=== PATIENT | male | born 1955 | race Caucasian/White ===

== ENCOUNTER 2018-11-23 03:26 | Emergency (ER) | payer BC ==
[~2018-11-23] VITALS: Ht 188 cm; Wt 106.6 kg
[~2018-11-23 03:26] MED LIST: ALLO300T2 PO; AML5T; ASPI-586 PO; CEPH-507 PO; ENLP10T; GLBR3T; HYDR-4226 PO; INSHRV; INSULIN HUMAN; MTF500T; PGLT30T; [UNRECOGNIZED DRUG - OTHER]
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
[2018-11-23] MEDS ORDERED: ANTACID SUSP 30 ML UDC (MYLANTA) PO ONE (04:00)
[2018-11-23] MEDS ORDERED: LIDOCAINE 2% VISCOUS 15 ML UDC PO ONE (04:00)
[2018-11-23] MEDS: NITROGLYCERIN 0.4 MG SL TABS BTL 25'S SL PRN ×2 (04:30→04:35)
[2018-11-23 04:37] LABS: BASOPHILS % (AUTO) 0 % (0-10); EOSINOPHILS # (AUTO) 0.1 10^3/uL (0.0-0.3); EOSINOPHILS % (AUTO) 3 % (0-10); HEMATOCRIT 41 % (40-54); HEMOGLOBIN 13.9 G/DL (13.3-17.7); LYMPHOCYTES # (AUTO) 0.7 X 10^3 (1.0-4.0); LYMPHOCYTES % (AUTO) 13 % (12-44); MEAN CORPUSCULAR HEMOGLOBIN 32 PG (25-34); MEAN CORPUSCULAR HGB CONC 34 G/DL (32-36); MEAN CORPUSCULAR VOLUME 93 FL (80-99); MEAN PLATELET VOLUME 10.9 FL (7.4-10.4); MONOCYTES # (AUTO) 0.5 X 10^3 (0.0-1.0); MONOCYTES % (AUTO) 10 % (0-12); NEUTROPHILS % (AUTO) 74 % (42-75); PLATELET COUNT 191 10^3/uL (130-400); RED CELL DISTRIBUTION WIDTH 13.6 % (10.0-14.5); WHITE BLOOD COUNT 5.4 10^3/uL (4.3-11.0)
[2018-11-23 04:58] LABS: ALANINE AMINOTRANSFERASE 32 U/L (0-55); ALBUMIN 3.9 GM/DL (3.2-4.5); ALKALINE PHOSPHATASE 62 U/L (40-136); BILIRUBIN,TOTAL 0.4 MG/DL (0.1-1.0); BUN/CREATININE RATIO 21; CALCIUM 9.4 MG/DL (8.5-10.1); CARBON DIOXIDE 23 MMOL/L (21-32); CHLORIDE 106 MMOL/L (98-107); CREATININE SERUM 0.98 MG/DL (0.60-1.30); GFR ESTIMATED > 60; GLUCOSE 148 MG/DL (70-105); MAGNESIUM 2.1 MG/DL (1.8-2.4); POTASSIUM 3.9 MMOL/L (3.6-5.0); SODIUM 140 MMOL/L (135-145); TOTAL PROTEIN 6.1 GM/DL (6.4-8.2)
[2018-11-23 05:04] LABS: MYOGLOBIN SERUM 113.7 NG/ML (10.0-92.0)
[2018-11-23 05:07] LABS: PROTHROMBIN TIME PATIENT 12.6 SEC (12.2-14.7)
--- NOTE | 2018-11-23 05:40 | ED Chest Pain ---
General Chief Complaint: Chest Pain Stated Complaint: CP Nursing Triage Note: intermittant epigastric pain x1 month, upper chest pain since 0300. Nursing Sepsis Screen: No Definite Risk Source: family, old records Exam Limitations: no limitations (OFELIA GABRIEL MD) History of Present Illness Date Seen by Provider: Nov 23, 2018 Time Seen by Provider: 03:38 Initial Comments This 62-year-old gentleman presents to the emergency room with complaints of pain in the epigastrium and left upper chest that started around 03:00. He has had some pain intermittently in the epigastric region for about a month. This seems to get better when he drinks water. However, the pain after the chest is new since this morning. He took aspirin 650 mg at 03:00. He had a stress test performed several years ago at this facility which she reports was unremarkable. Review of the chart shows an order for that test in 2010 but no report can be found. He reports pain is now about 3/10 in intensity. It feels like a pressure. He denies any history of heart disease. He is not a smoker. He has hypertension, diabetes, and history of renal stones. His primary care provider is Dr. Recinos. (OFELIA GABRIEL MD) Allergies and Home Medications Allergies Coded Allergies: No Known Drug Allergies (Verified , 12/31/07) Home Medications Allopurinol 300 Mg Tablet, 300 MG PO DAILY, (Reported) Aspirin 81 Mg Tablet.dr, 81 MG PO DAILY, (Reported) Patient Home Medication List Home Medication List Reviewed: Yes (OFELIA GABRIEL MD) Review of Systems Review of Systems Constitutional: no symptoms reported EENTM: No Symptoms Reported Respiratory: No Symptoms Reported Cardiovascular: No Symptoms Reported Gastrointestinal: See HPI Genitourinary: No Symptoms Reported Musculoskeletal: no symptoms reported Skin: no symptoms reported Psychiatric/Neurological: No Symptoms Reported Endocrine: No Symptoms Reported Hematologic/Lymphatic: No Symptoms Reported (OFELIA GABRIEL MD) Past Aduidup-Jxjjcn-Iinfsw Hx Past Med/Social Hx: Reviewed and Corrections made (OFELIA GABRIEL MD) Patient Social History Alcohol Use: Occasionally Uses Recreational Drug Use: No Smoking Status: Never a Smoker 2nd Hand Smoke Exposure: No Recent Foreign Travel: No Contact w/Someone Who Travel: No Recent Infectious Disease Expo: No Recent Hopitalizations: No (OFELIA GABRIEL MD) Immunizations Up To Date Tetanus Booster (TDap): More than 5yrs (OFELIA GABRIEL MD) Seasonal Allergies Seasonal Allergies: No (OFELIA GABRIEL MD) Past Medical History Surgeries: Yes (BACK SURG.L5 X3, lithrotripsy) Renal Respiratory: Yes Sleep Apnea Currently Using CPAP: Yes Cardiac: Yes Hypertension Neurological: No Reproductive Disorders: No Genitourinary: Yes Kidney Stones Gastrointestinal: No Musculoskeletal: Yes (SURGERIES-L5 X3) Endocrine: Yes Diabetes, Non-Insulin dep HEENT: No Cancer: No Psychosocial: No Integumentary: No Blood Disorders: No (OFELIA GABRIEL MD) Physical Exam Vital Signs Vital Signs - First Documented 11/23/18 03:30 Temp 98.6 Pulse 63 Resp 18 B/P (MAP) 154/74 (100) (GREGORY BETTS) Vital Signs Capillary Refill : Less Than 3 Seconds (OFELIA GABRIEL MD) Height, Weight, BMI Height: 6'2.00" Weight: 235lbs. 0oz. 106.821831xx; BMI Method:Stated General Appearance: No Apparent Distress, WD/WN HEENT: PERRL/EOMI, Normal ENT Inspection Neck: Normal Inspection Respiratory: Chest Non Tender, Lungs Clear, Normal Breath Sounds, No Accessory Muscle Use, No Respiratory Distress Cardiovascular: Regular Rate, Rhythm, No Edema, No Murmur, Normal Peripheral Pulses Gastrointestinal: Normal Bowel Sounds, Soft, Tenderness (mild in the epigastrium) Extremity: Normal Capillary Refill, Normal Inspection, No Calf Tenderness, No Pedal Edema, Other (negative Lisa) Neurologic/Psychiatric: Alert, Oriented x3, No Motor/Sensory Deficits, Normal Mood/Affect, special education supervisor II-XII Norm as Tested Skin: Normal Color, Warm/Dry (OFELIA GABRIEL MD) Procedures/Interventions Suture Size: 4-0 (OFELIA GABRIEL MD) Progress/Results/Core Measures Results/Orders Lab Results Laboratory Tests Test 11/23/18 04:30 11/23/18 07:00 Range/Units White Blood Count 5.4 4.3-11.0 10^3/uL Red Blood Count 4.37 4.35-5.85 10^6/uL Hemoglobin 13.9 13.3-17.7 G/DL Hematocrit 41 40-54 % Mean Corpuscular Volume 93 80-99 FL Mean Corpuscular Hemoglobin 32 25-34 PG Mean Corpuscular Hemoglobin Concent 34 32-36 G/DL Red Cell Distribution Width 13.6 10.0-14.5 % Platelet Count 191 130-400 10^3/uL Mean Platelet Volume 10.9 H 7.4-10.4 FL Neutrophils (%) (Auto) 74 42-75 % Lymphocytes (%) (Auto) 13 12-44 % Monocytes (%) (Auto) 10 0-12 % Eosinophils (%) (Auto) 3 0-10 % Basophils (%) (Auto) 0 0-10 % Neutrophils # (Auto) 4.0 1.8-7.8 X 10^3 Lymphocytes # (Auto) 0.7 L 1.0-4.0 X 10^3 Monocytes # (Auto) 0.5 0.0-1.0 X 10^3 Eosinophils # (Auto) 0.1 0.0-0.3 10^3/uL Basophils # (Auto) 0.0 0.0-0.1 10^3/uL Prothrombin Time 12.6 12.2-14.7 SEC INR Comment 1.0 0.8-1.4 Activated Partial Thromboplast Time 29 24-35 SEC Sodium Level 140 135-145 MMOL/L Potassium Level 3.9 3.6-5.0 MMOL/L Chloride Level 106 98-107 MMOL/L Carbon Dioxide Level 23 21-32 MMOL/L Anion Gap 11 5-14 MMOL/L Blood Urea Nitrogen 21 H 7-18 MG/DL Creatinine 0.98 0.60-1.30 MG/DL Estimat Glomerular Filtration Rate > 60 BUN/Creatinine Ratio 21 Glucose Level 148 H 70-105 MG/DL Calcium Level 9.4 8.5-10.1 MG/DL Corrected Calcium 9.5 8.5-10.1 MG/DL Magnesium Level 2.1 1.8-2.4 MG/DL Total Bilirubin 0.4 0.1-1.0 MG/DL Aspartate Amino Transf (AST/SGOT) 31 5-34 U/L Alanine Aminotransferase (ALT/SGPT) 32 0-55 U/L Alkaline Phosphatase 62 40-136 U/L Myoglobin 113.7 H 10.0-92.0 NG/ML Troponin I < 0.028 < 0.028 <0.028 NG/ML Total Protein 6.1 L 6.4-8.2 GM/DL Albumin 3.9 3.2-4.5 GM/DL (GREGORY BETTS) Medications Given in ED Current Medications Medications Dose Ordered Sig/Rhys Route Start Time Stop Time Status Last Admin Dose Admin Al Hydrox/Mg Hydrox/Simethicone 30 ml ONCE ONCE PO 11/23/18 04:00 11/23/18 04:01 DC 11/23/18 03:53 30 ML Lidocaine HCl 15 ml ONCE ONCE PO 11/23/18 04:00 11/23/18 04:01 DC 11/23/18 03:53 15 ML Nitroglycerin 0.4 mg UD PRN SL 11/23/18 04:30 11/23/18 04:35 0.4 MG (GREGORY BETTS) Vital Signs/I&O 11/23/18 11/23/18 11/23/18 03:30 03:30 03:30 Temp 98.6 Pulse 63 Resp 18 B/P (MAP) 154/74 (100) Pulse Ox 96 96 O2 Delivery Room Air Room Air Room Air (GREGORY BETTS) Blood Pressure Mean: 100 Progress Progress Note #1: Time: 05:37 Progress Note Patient received a GI cocktail which modestly may have improved his pain. Patient was reexamined after GI cocktail and no longer had tenderness in the epigastrium. This was followed by nitroglycerin which likewise may have modestly improved his pain. He reports his discomfort is not even really noticeable now. I discussed options with him including admission for observation versus repeat troponin at the 4 hour dwight. He would like to have his troponin repeated and follow-up as an outpatient if possible. Repeat troponin has been ordered for 07:00. Progress Note #2: Time: 06:16 Progress Note Repeat troponin is pending. Care of this patient is being transitioned to Dr. Betts at this time. (OFELIA GABRIEL MD) Initial ECG Impression Date: Nov 23, 2018 Initial ECG Impression Time: 04:35 Initial ECG Rate: 66 Initial ECG Rhythm: Normal Sinus Initial ECG Intervals: Normal Initial ECG Impression: Normal Comment Normal sinus rhythm with no ST elevation or depression. No abnormal intervals or axis deviation. (OFELIA GABRIEL MD) Diagnostic Imaging Diagonstic Imaging: Xray Plain Films/CT/US/NM/MRI: chest Comments Chest x-ray viewed by me and report not yet available. No acute abnormalities appreciated. (OFELIA GABRIEL MD) Comments [facility] [place], [place] NAME: MOY FARRAR [facility] REC#: [id number] PT STATUS: REG ER : 1955 PHYSICIAN: OFELIA GABRIEL MD ADMIT DATE: 11/23/18/ER Draft Date of Exam:11/23/18 CHEST 1 VIEW, AP/PA ONLY CLINICAL INDICATION: Patient with chest pain. EXAM: Portable chest x-ray upright view. COMPARISONS: Chest x-ray dated 12/23/2007. FINDINGS: Lungs/pleura: Lungs are clear. There is no pneumothorax. There is no pleural effusion. Mediastinum: Unremarkable. Pulmonary vasculature: Unremarkable. Heart: Unremarkable. Bones/extrathoracic soft tissue: There are moderately hypertrophic spurs seen throughout the thoracic spine. IMPRESSION: There is no radiographic evidence of acute cardiopulmonary process. Dictated on workstation # [id number] Dict: 11/23/1810 Trans: 11/23/1816 [id number] Interpreted by: BETTIE SANTANA MD Electronically signed by: (GREGORY EBTTS) Departure Impression Primary Impression: Chest pain Qualified Codes: R07.9 - Chest pain, unspecified Additional Impression: Epigastric pain Disposition: 01 HOME, SELF-CARE Condition: Improved Departure-Patient Inst. Decision time for Depature: 07:34 (GREGORY BETTS) Referrals: RAVEN ACEVES MD, FLOYD R MD (PCP/Family) Primary Care Physician Patient Instructions: Acute Abdomen (Belly Pain), Chest Pain (DC) Add. Discharge Instructions: Follow-up with your primary care provider and a biology faculty member, Dr Aceves, as soon as possible. Take an antacid medication such as omeprazole 20 mg daily or Pepcid (famotidine ) 20 mg twice daily routinely for at least the next couple of weeks. Take aspirin 81 mg daily until instructed otherwise. Return to care if you have worsening symptoms. All discharge instructions reviewed with patient and/or family. Voiced understanding. OFELIA GABRIEL MD Nov 23, 2018 05:40 GREGORY BETTS Nov 23, 2018 07:34
--- NOTE | 2018-11-23 06:16 | Diagnostic Imaging Report ---
CLINICAL INDICATION: Patient with chest pain. EXAM: Portable chest x-ray upright view. COMPARISONS: Chest x-ray dated 12/23/2007. FINDINGS: Lungs/pleura: Lungs are clear. There is no pneumothorax. There is no pleural effusion. Mediastinum: Unremarkable. Pulmonary vasculature: Unremarkable. Heart: Unremarkable. Bones/extrathoracic soft tissue: There are moderately hypertrophic spurs seen throughout the thoracic spine. IMPRESSION: There is no radiographic evidence of acute cardiopulmonary process. Dictated by: Dictated on workstation # [id number]
--- NOTE | 2018-11-23 07:03 | NUR ---
REPEAT TROPONIN DRAWN
[2018-11-23 07:41] VITALS: BP 123/79
== END 2018-11-23 07:41 | disposition home or self-care (01) ==
LOC: EDUNIT# 03:26 → ER 03:28
DX: R07.9 Chest pain, unspecified (principal); R10.13 Epigastric pain; I10 Essential (primary) hypertension; E11.9 Type 2 diabetes mellitus without complications; G47.30 Sleep apnea, unspecified; Z87.442 Personal history of urinary calculi; Z79.82 Long term (current) use of aspirin; Z98.890 Other specified postprocedural states
CPT/HCPCS: 36415; 71045; 80053; 83735; 83874; 84484; 85025; 85610; 85730; 93005; 93041

== ENCOUNTER → 2018-11-28 | Outpatient (CLI) | payer BC | LOC: CARD 13:55 | PROVIDERS: ATTEND Internal Medicine Cardiovascular Disease | DX: R07.89 Other chest pain (principal); I10 Essential (primary) hypertension; E11.9 Type 2 diabetes mellitus without complications; I34.0 Nonrheumatic mitral (valve) insufficiency; E66.9 Obesity, unspecified; Z98.890 Other specified postprocedural states | CPT/HCPCS: 93306 ==

== ENCOUNTER 2021-08-09 16:31 | Emergency (ER) | payer OTHER, MEDICARE ==
[~2021-08-09] VITALS: Ht 177.8 cm; Wt 81.0 kg
[2021-08-09] MEDS ORDERED: morphine INJ 10 MG/ML 1ML (SYR OR VIAL) ONE (16:36)
[2021-08-09] MEDS ORDERED: morphine INJ 10 MG/ML 1ML (SYR OR VIAL) IVP STA (16:39)
[2021-08-09] MEDS ORDERED: HYDROmorphone 2 MG/ML VIAL (DILAUDID) IV ONE (16:45)
[2021-08-09] MEDS ORDERED: TETANUS,DIPTH,PERTUSS P/F (BOOSTRIX) 0.5 ML VIAL IM ONE (16:45)
[2021-08-09 16:50] LABS: HEMATOCRIT 41 % (40-54); HEMOGLOBIN 13.5 g/dL (13.3-17.7); MEAN CORPUSCULAR HEMOGLOBIN 31 pg (25-34); MEAN CORPUSCULAR HGB CONC 33 g/dL (32-36); MEAN CORPUSCULAR VOLUME 93 fL (80-99); PLATELET COUNT 218 10^3/uL (130-400); WHITE BLOOD COUNT 7.8 10^3/uL (4.3-11.0)
[2021-08-09 16:52] LABS: ALBUMIN 3.8 GM/DL (3.2-4.5); CHLORIDE 105 MMOL/L (98-107); POTASSIUM 3.8 MMOL/L (3.6-5.0); SODIUM 143 MMOL/L (135-145)
[2021-08-09 16:54] LABS: CALCIUM 8.8 MG/DL (8.5-10.1)
[2021-08-09 16:55] LABS: GLUCOSE 154 MG/DL (70-105); TOTAL PROTEIN 6.1 GM/DL (6.4-8.2)
[2021-08-09 16:56] LABS: CARBON DIOXIDE 29 MMOL/L (21-32)
[2021-08-09 16:57] LABS: BILIRUBIN,TOTAL 0.8 MG/DL (0.1-1.0)
[2021-08-09 16:58] LABS: ALKALINE PHOSPHATASE 63 U/L (40-136)
[2021-08-09 16:59] LABS: CREATININE SERUM 0.97 MG/DL (0.60-1.30); GFR ESTIMATED 77
[2021-08-09 17:00] LABS: BILIRUBIN,DIRECT 0.3 MG/DL (0.0-0.3); BILIRUBIN,INDIRECT 0.5 MG/DL; BUN/CREATININE RATIO 27
[2021-08-09 17:01] LABS: ALANINE AMINOTRANSFERASE 266 U/L (0-55)
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
[2021-08-09] MEDS ORDERED: IOHEXOL 350 MG/ML 100 ML (OMNIPAQUE 350) VIAL IV ONE ×2 (17:15→17:30)
[2021-08-09] MEDS ORDERED: HOLD METFORMIN - RECEIVED CONTRAST 20 ML VIAL IV SCH ×2 (17:15→17:30)
[2021-08-09] MEDS ORDERED: NS 100 ML (IVPB) BAG IV ONE ×2 (17:15→17:30)
[2021-08-09] MEDS ORDERED: TRANEXAMIC ACID INJECTION 1,000 MG in NS (IVPB) 50 ML IV ONE (17:15)
[2021-08-09] MEDS ORDERED: TRANEXAMIC ACID INJECTION 1,000 MG in NS (IVPB) 250 ML IV SCH (17:15)
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
[2021-08-09 17:30] LABS: BILIRUBIN,URINE NEGATIVE (NEGATIVE); CLARITY,URINE CLEAR; COLOR,URINE YELLOW; GLUCOSE, URINE (UA) NEGATIVE (NEGATIVE); KETONES,URINE NEGATIVE (NEGATIVE); LEUKOCYTE ESTERASE ,URINE NEGATIVE (NEGATIVE); NITRITE,URINE NEGATIVE (NEGATIVE); PROTEIN,URINE 1+ (NEGATIVE)
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
[2021-08-09] MEDS ORDERED: LIDOCAINE 1% INJ 20 ML 20 ML VIAL ONE (17:38)
[2021-08-09 17:44] LABS: AMPHETAMINE SCREEN, URINE NEGATIVE (NEGATIVE); BARBITURATE SCREEN URINE NEGATIVE (NEGATIVE); BENZODIAZEPINES SCREEN URINE NEGATIVE (NEGATIVE); CANNABINOID SCREEN, URINE NEGATIVE (NEGATIVE); COCAINE SCREEN URINE NEGATIVE (NEGATIVE); METHADONE STAT NEGATIVE (NEGATIVE); METHAMPHETAMINE SCREEN URINE S NEGATIVE (NEGATIVE); OPIATE SCREEN URINE POSITIVE (NEGATIVE); OXYCODONE STAT NEGATIVE (NEGATIVE); TRICYCLIC ANTIDEPRESSANTS SCRE NEGATIVE (NEGATIVE)
[2021-08-09 17:45] LABS: PROPOXYPHENE STAT NEGATIVE (NEGATIVE)
[2021-08-09 17:46] LABS: BACTERIA,URINE NEGATIVE /HPF; RBC,URINE 50-100 /HPF
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
[2021-08-09] MEDS ORDERED: LIDOCAINE 1% INJ 20 ML 20 ML VIAL INJ ONE (18:00)
--- NOTE | 2021-08-09 18:41 | Diagnostic Imaging Report ---
INDICATION: Thora-Vent placement AP view of the chest is obtained. Since the study of earlier in the day, Thora-Vent has been placed in the right upper chest. There is no evidence of significant pneumothorax. There is no midline shift. No pneumopericardium is identified. There is mild bilateral basilar atelectasis and/or contusion. IMPRESSION: 1. Mild basilar atelectasis and/or contusion without evidence of complication post Thora-Vent placement. Dictated by: Dictated on workstation # [id number]
[2021-08-09 19:05] VITALS: BP 144/76
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
== END 2021-08-09 19:05 | disposition short-term general hospital (02) ==
LOC: EDUNIT# 16:31 → ER 16:32
DX: S22.43XA Multiple fractures of ribs, bilateral, initial encounter for closed fracture (principal); S01.01XA Laceration without foreign body of scalp, initial encounter; S27.329A Contusion of lung, unspecified, initial encounter; S60.512A Abrasion of left hand, initial encounter; S60.511A Abrasion of right hand, initial encounter; I60.9 Nontraumatic subarachnoid hemorrhage, unspecified; R41.82 Altered mental status, unspecified; R58 Hemorrhage, not elsewhere classified; J93.9 Pneumothorax, unspecified; J94.2 Hemothorax; G47.30 Sleep apnea, unspecified; I10 Essential (primary) hypertension; E11.9 Type 2 diabetes mellitus without complications; Z23 Encounter for immunization; Z79.84 Long term (current) use of oral hypoglycemic drugs; Z79.82 Long term (current) use of aspirin; V29.9XXA Motorcycle rider (driver) (passenger) injured in unspecified traffic accident, initial encounter
CPT/HCPCS: 32551; 51702; 70450; 71045; 71260; 72125; 72170; 74177; 80048; 80076; 80306; 81000; 84484; 85027; 86850; 86900; 86901; 86920; 90471; 93005; 93041; 96374; 96375; 99291; 99292; G0390; G0480; 36415; 80320; 90715

== ENCOUNTER → 2021-08-17 | Outpatient (CLI) | payer MEDICARE, OTHER ==
--- NOTE | 2021-08-17 14:18 | Diagnostic Imaging Report ---
INDICATION: Difficulty breathing. TIME OF EXAM: 01:46 p.m. COMPARISON: Comparison is made with prior chest from 08/09/2021. FINDINGS: Numerous left-sided rib fractures are again noted. Low right rib fractures also seen. The patient has developed a [id number] left pleural effusion as well as a small right pleural effusion. There is a questionable small left pneumothorax. No right-sided pneumothorax is identified. The heart size is stable. There is subcutaneous gas within the soft tissues of the lateral left chest wall as well as in the left supraclavicular location. IMPRESSION: Bilateral rib fractures, most numerous on the left. Patient has developed a large left and small right pleural effusion. There is a questionable tiny left-sided pneumothorax. There is subcutaneous gas noted along the left chest wall and left supraclavicular region. Dictated by: Dictated on workstation # [id number]
== END ==
LOC: RAD 13:10
PROVIDERS: ATTEND Family Medicine
DX: S22.43XD Multiple fractures of ribs, bilateral, subsequent encounter for fracture with routine healing (principal); J90 Pleural effusion, not elsewhere classified; X58.XXXD Exposure to other specified factors, subsequent encounter
CPT/HCPCS: 71046

== ENCOUNTER → 2021-09-23 | Outpatient (CLI) | payer MEDICARE ==
[2021-09-23 13:18] LABS: BASOPHILS % (AUTO) 0 % (0-10); EOSINOPHILS % (AUTO) 1 % (0-10); HEMATOCRIT 39 % (40-54); HEMOGLOBIN 12.5 g/dL (13.3-17.7); LYMPHOCYTES # (AUTO) 0.5 10^3/uL (1.0-4.0); LYMPHOCYTES % (AUTO) 7 % (12-44); MEAN CORPUSCULAR HEMOGLOBIN 29 pg (25-34); MEAN CORPUSCULAR HGB CONC 32 g/dL (32-36); MEAN CORPUSCULAR VOLUME 91 fL (80-99); MEAN PLATELET VOLUME 9.4 fL (9.0-12.2); MONOCYTES # (AUTO) 0.7 10^3/uL (0.0-1.0); MONOCYTES % (AUTO) 8 % (0-12); NEUTROPHILS # (AUTO) 6.6 10^3/uL (1.8-7.8); NEUTROPHILS % (AUTO) 84 % (42-75); PLATELET COUNT 369 10^3/uL (130-400); WHITE BLOOD COUNT 7.9 10^3/uL (4.3-11.0)
[2021-09-23 13:52] LABS: BAND NEUTROPHILS 0 %; BASOPHILS % (MANUAL) 0 %; EOSINOPHILS % (MANUAL) 1 %; LYMPHOCYTES % (MANUAL) 10 %; MONOCYTES % (MANUAL) 6 %; NEUTROPHILS % (MANUAL) 83 %; RBC MORPH NORMAL
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
== END ==
LOC: RAD 12:45
PROVIDERS: ATTEND Thoracic Surgery (Cardiothoracic Vascular Surgery)
DX: J90 Pleural effusion, not elsewhere classified (principal); R91.8 Other nonspecific abnormal finding of lung field; R89.9 Unspecified abnormal finding in specimens from other organs, systems and tissues
CPT/HCPCS: 36415; 71046; 85007; 85027